=== PATIENT | male | born 1980 | race Caucasian/White ===

== ENCOUNTER 2016-11-06 10:09 | Emergency (ER) | payer BC ==
[~2016-11-06] VITALS: Ht 185.4 cm; Wt 107.9 kg
[~2016-11-06 10:09] MED LIST: IBUP-1428 PO; OXYC-57 PO
[2016-11-06 10:16] VITALS: TEMP 36.6; Ht 185.4 cm; Wt 107.9 kg
[2016-11-06 10:39] LABS: BASO % 0.1 %; BASO ABS # 0.01 K/uL (0-0.2); COMPLETE YES; EOS % 3.4 %; HEMATOCRIT 41.6 % (42-52); IG% 0.1 %; LYMPH % 45.4 %; LYMPH ABS # 3.23 K/uL (1.2-3.4); MEAN CELL VOLUME 84.7 fL (80-100); MEAN CORPUSCULAR HEMOGLOBIN 31.6 pg (25-34); MEAN CORPUSCULAR HGB CONC 37.3 g/dl (32-36); MONO % 5.8 %; NEUT % 45.2 %; PLATELET COUNT 264 K/uL (130-400); RED BLOOD COUNT 4.91 M/uL (4.7-6.1); WHITE BLOOD COUNT 7.12 K/uL (4.8-10.8)
--- NOTE | 2016-11-06 10:42 | DIAGNOSTIC IMAGING REPORT ---
CHEST ONE VIEW PORTABLE CLINICAL HISTORY: Atypical chest pain COMPARISON STUDY: No previous studies for comparison. FINDINGS: The cardiac and mediastinal contours are normal. There is no evidence of focal pulmonary consolidation. There is no evidence of failure. No pleural effusions are visualized.[ IMPRESSION: No active disease in the chest. Electronically signed by: Quintin Miles M.D. 11/06/2016 10:40 AM Dictated Date/Time: 11/06/2016 10:40 AM
[2016-11-06 11:06] LABS: BUN/CREATININE RATIO 16.3 (10-20); CREATININE 1.1 mg/dl (0.60-1.40)
[2016-11-06 11:11] LABS: CKMB/CK RATIO 0.7 (0-3.0)
[2016-11-06 11:17] VITALS: O2SAT 96
[2016-11-06] MEDS ORDERED: PERFLUTREN LIPID MICROSPHERE (DEFINITY) IV ONE (14:13)
[2016-11-06 14:25] VITALS: BP 135/74; PULSE 79; O2SAT 97
--- NOTE | 2016-11-06 15:38 | EXERCISE STRESS ECHO ---
*NOTICE TO RECEIVING [employer] This information is strictly Confidential and protected under [place] law. [place] law prohibits you from making any further disclosure of this information unless further disclosure is expressly permitted by the written consent of the person to whom it pertains or is authorized by law. A general authorization for the release of medical or other information is not sufficient for this purpose. Hospital accepts no responsibility if the information is made available to any other person, INCLUDING THE PATIENT. Interpretation Summary * Name: LUIS CEVALLOS Study Date: 11/06/2016 01:21 PM BP: 166/67 mmHg * Patient Location: [facility] HR: 61 * : 1980 (M/d/yyyy) Gender: Male Height: 73 in * Age: 36 yrs Ethnicity: CA Weight: 237 lb * Ordering Physician: Hong Hui * Referring Physician: Self, Referred * Performed By: Giselle Mcfarlane RCS * * Reason For Study: CHEST PAIN / NUMBNESS IN ARM * BSA: 2.3 m2 * -- Conclusions -- * Normal stress echocardiogram at 12.1 METS and a peak heart rate of 97% predicted maximum. * No exercise induced chest pain. * No EKG changes. * Baseline echocardiogram notes normal left ventricular systolic function. Procedure Details * ECHOEX, CPT #89895 * One vial of Definity ultrasound contrast was diluted in normal saline to a total volume of 10 ml. A total of '4' ml of solution was administered during imaging. * A contrast injection of Definity was performed to improve assessment of LV function. * Contrast was injected into an intravenous site in the right arm. * Lot # [id number] of Definity utilized for procedure. * Expiration date OCT 15. * The attending nurse who injected the contrast agent was GIULIA CORRAL CPL, RN. Left Ventricle * The left ventricle is normal in size. * There is normal left ventricular wall thickness. * Left ventricular systolic function is normal. * Resting wall motion: Normal. Stress wall motion: Appropriate increase in Left ventricular systolic function and decrease in cavity size. No stress induced segmental wall motion abnormalities. Stress Parameters * Normal baseline electrocardiogram. * Stress ECG: No ST changes. No arrhythmias. * The stress portion of this study was personally supervised by the undersigned interpreting physician. * Rest heart rate was '61' BPM. * Rest blood pressure was '166/67' * Maximum heart rate achieved was 179 bpm. * Maximum heart rate was 97 % of maximum age-predicted heart rate. * Maximum blood pressure was '173/73' * Total exercise time was '08:31' * Maximum exercise MET level achieved was '12.10' METS * Maximum treadmill speed was '4.20' miles per hour. * Maximum treadmill elevation was '16.00'% grade.
--- NOTE | 2016-11-06 16:33 | EMERGENCY ROOM VISIT NOTE ---
History Report prepared by Morena: Braden Young Under the Supervision of: Dr. Hong Hui M.D. First contact with patient: 10:26 Chief Complaint: CARDIAC ASSESSMENT Stated Complaint: CHEST PAIN, NUMBING IN ARM Nursing Triage Summary: Pt reports last week he was running and developed midsternal CP. He slowed the treadmill down and sx resolved. Yesterday morning pt was driving to work, smoking an E-cigarette and got lightheaded and chest tightness This morning pt wsa driving to work, smoke an E-cigarette and drinking coffee when he got lightheaded, chest tightness, and numbness in left arm History of Present Illness The patient is a 36 year old male who presents to the Emergency Room with complaints of intermittent left sided chest pain starting about a week ago. While running at the gym, he had the onset of his chest pain last week. It resolved a few minutes after resting. He had a few more episodes of the pain with exertion. Yesterday morning, the patient was driving to work and smoking an e-cigarette when he had the onset of his pain. It resolved with rest. This morning, he was drinking coffee and driving to work when he had the onset of his pain again. He also started having pain radiation to the left arm which is new. He states that each episode of pain is worse than prior episodes and it is increasing in frequency. He describes it to be a squeezing pain in his chest. His grandfather had triple bypass surgery. The patient does not have any cardiac history. Pt denies LOC, headache, fevers, chills, diaphoresis, visual changes, neck pain, tearing pain radiating to the back, personal history or family history of aneurysm or pulmonary embolism, breathing difficulties, leg swelling, coagulation abnormalities, prolonged travel, recent surgery or immobilization, nausea, vomiting, abdominal pain, melena, hematochezia, urinary symptoms, numbness, weakness, lymphadenopathy, rash, or other complaints. Source of History: patient Onset: about a week ago Position: chest (left) Quality: other (squeezing pain) Timing: intermittent Modifying Factors (Worsening): exertion Modifying Factors (Relieving): rest Review of Systems See HPI for pertinent positives and negatives. A total of ten systems were reviewed and were otherwise negative. 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 Family History Cancer Heart disease Hypertension Social History Smoking Status: Current Every Day Smoker Marital Status: single Occupation Status: employed Current/Historical Medications No Active Prescriptions or Reported Meds Allergies Coded Allergies: No Known Allergies (Unverified , 11/06/16) Physical Exam Vital Signs Date Time Temp Pulse Resp B/P Pulse Ox O2 Delivery O2 Flow Rate FiO2 11/06/16 14:25 79 20 135/74 97 Room Air 11/06/16 12:14 60 18 131/89 97 Room Air 11/06/16 11:17 96 Room Air 11/06/16 10:26 61 11/06/16 10:16 97 Room Air 11/06/16 10:16 36.6 62 16 151/106 97 Room Air Physical Exam GENERAL: Awake, alert, well-appearing, in no distress HENT: Normocephalic, atraumatic. Oropharynx unremarkable. EYES: Normal conjunctiva. Sclera non-icteric. NECK: Supple. No nuchal rigidity. FROM. No JVD. RESPIRATORY: Clear to auscultation. CARDIAC: Regular rate, normal rhythm. Extremities warm and well perfused. Pulses equal. ABDOMEN: Soft, non-distended. No tenderness to palpation. No rebound or guarding. No masses. RECTAL: Deferred. MUSCULOSKELETAL: Chest examination reveals no tenderness. The back is symmetrical on inspection without obvious abnormality. There is no CVA tenderness to palpation. No joint edema. LOWER EXTREMITIES: Calves are equal size bilaterally and non-tender. No edema. No discoloration. NEURO: Normal sensorium. No sensory or motor deficits noted. SKIN: No rash or jaundice noted. Medical Decision & Procedures ER Provider Diagnostic Interpretation: X ray results as stated below per my interpretation and radiologist interpretation. CHEST ONE VIEW PORTABLE CLINICAL HISTORY: Atypical chest pain COMPARISON STUDY: No previous studies for comparison. FINDINGS: The cardiac and mediastinal contours are normal. There is no evidence of focal pulmonary consolidation. There is no evidence of failure. No pleural effusions are visualized.[ IMPRESSION: No active disease in the chest. Electronically signed by: Quintin Miles M.D. 11/06/2016 10:40 AM Dictated Date/Time: 11/06/2016 10:40 AM Laboratory Results 11/06/16 10:20 Red Blood Count 4.91, Mean Corpuscular Volume 84.7, Mean Corpuscular Hemoglobin 31.6, Mean Corpuscular Hemoglobin Concent 37.3, Mean Platelet Volume 9.0, Neutrophils (%) (Auto) 45.2, Lymphocytes (%) (Auto) 45.4, Monocytes (%) (Auto) 5.8, Eosinophils (%) (Auto) 3.4, Basophils (%) (Auto) 0.1, Neutrophils # (Auto) 3.22, Lymphocytes # (Auto) 3.23, Monocytes # (Auto) 0.41, Eosinophils # (Auto) 0.24, Basophils # (Auto) 0.01 11/06/16 10:20 Test 11/06/16 10:20 11/06/16 10:36 11/06/16 12:35 White Blood Count 7.12 K/uL (4.8-10.8) Red Blood Count 4.91 M/uL (4.7-6.1) Hemoglobin 15.5 g/dL (14.0-18.0) Hematocrit 41.6 % (42-52) Mean Corpuscular Volume 84.7 fL (80-100) Mean Corpuscular Hemoglobin 31.6 pg (25-34) Mean Corpuscular Hemoglobin Concent 37.3 g/dl (32-36) Platelet Count 264 K/uL (130-400) Mean Platelet Volume 9.0 fL (7.4-10.4) Neutrophils (%) (Auto) 45.2 % Lymphocytes (%) (Auto) 45.4 % Monocytes (%) (Auto) 5.8 % Eosinophils (%) (Auto) 3.4 % Basophils (%) (Auto) 0.1 % Neutrophils # (Auto) 3.22 K/uL (1.4-6.5) Lymphocytes # (Auto) 3.23 K/uL (1.2-3.4) Monocytes # (Auto) 0.41 K/uL (0.11-0.59) Eosinophils # (Auto) 0.24 K/uL (0-0.5) Basophils # (Auto) 0.01 K/uL (0-0.2) RDW Standard Deviation 38.4 fL (36.4-46.3) RDW Coefficient of Variation 12.4 % (11.5-14.5) Immature Granulocyte % (Auto) 0.1 % Immature Granulocyte # (Auto) 0.01 K/uL (0.00-0.02) Anion Gap 8.0 mmol/L (3-11) Est Creatinine Clear Calc Drug Dose 119.6 ml/min Estimated GFR () 99.6 Estimated GFR (Non- 85.9 BUN/Creatinine Ratio 16.3 (10-20) Calcium Level 9.0 mg/dl (8.5-10.1) Total Bilirubin 0.7 mg/dl (0.2-1) Direct Bilirubin 0.2 mg/dl (0-0.2) Aspartate Amino Transf (AST/SGOT) 25 U/L (15-37) Alanine Aminotransferase (ALT/SGPT) 50 U/L (12-78) Alkaline Phosphatase 86 U/L (45-117) Total Creatine Kinase 562 U/L (39-308) Creatine Kinase MB 4.2 ng/ml (0.5-3.6) Creatine Kinase MB Ratio 0.7 (0-3.0) Total Protein 7.9 gm/dl (6.4-8.2) Albumin 4.4 gm/dl (3.4-5.0) Lipase 211 U/L (73-393) Bedside D-Dimer 241 ng/mlFEU (0-450) Bedside Troponin I 0.000 ng/ml (0-0.045) Laboratory results reviewed by me Medications Administered Medications (Trade) Dose Ordered Sig/Anatoliy Route Start Time Stop Time Status Last Admin Dose Admin Perflutren Lipid Microsphere (Definity) 2 ml ONE ONCE IV 11/06/16 14:13 11/06/16 14:14 DC 11/06/16 14:13 2 ML ECG Indication: chest pain Rate (beats per minute): 64 Rhythm: normal sinus Findings: no acute ischemic change, no ectopy ED Course 1026: The patient was evaluated in room A03. A complete history and physical exam was performed. 1254: I discussed the patient's case with Dr. Reyez, binder chainstitch with [facility]. The patient will have the stress test within about an hour. 1257: I updated the patient. He is resting comfortably. 1310: The patient is currently doing a stress test. 1413: Definity 2 ml IV 1422: Dr. Reyez reported that the patient's stress test was normal. 1430: I reevaluated the patient. Discussed results and discharge instructions: He verbalized understanding and agreement. The patient is ready for discharge. Medical Decision Triage Nursing notes reviewed. The patient's presentation and history were concerning for chest pain. Etiologies such as cardiac ischemia, aortic dissection, pulmonary embolism, pneumonia, pneumothorax, musculoskeletal, infections, gastrointestinal, as well as others were entertained. The patient was evaluated. Clinically he was doing well. His ECG was nonischemic. Chest x-ray was performed and was normal. The patient had an unremarkable CBC, chemistry panel, d-dimer and troponin. CK was slightly elevated. The patient had a troponin repeated and this was 0 as well. Given his exertional symptoms it was felt that he should undergo further workup and I did consult with cardiology. The patient was seen in the cardiopulmonary suite and had stress testing performed. He passed this without difficulty. Given this fact coupled with his negative enzymes the patient was felt to be low risk for heart disease and can follow-up as an outpatient. Risks and benefits discussed. Given the total CK elevation of this may be muscular in nature. The patient felt very comfortable with this plan. If he worsens in any way he will be back to the Emergency Room for reevaluation. By the evaluation outlined above other emergent etiologies such as those listed in the differential, as well as others, were deemed relatively unlikely. The patient and family were informed about the findings as listed above. All questions were answered and they were pleased with the treatment. Return instructions were outlined and the patient was discharged in stable condition. The patient was referred to his PCP for follow-up for a recheck of the current condition. The chart was completed utilizing [employer] Speech voice recognition software. Grammatical errors, random word insertions, pronoun errors, and incomplete sentences are an occasional consequence of this system due to software limitations, ambient noise, and hardware issues. Any formal questions or concerns about the content, text, or information contained within the body of this dictation should be directly addressed to the physician for clarification. Consults Time Called: 1252 Consulting Physician: Dr. Reyez, binder chainstitch with [facility] Returned Call: 1252 I discussed the patient's case with Dr. Reyez, binder chainstitch with [facility]. The patient will have the stress test within about an hour. Impression Primary Impression: Left sided chest pain Scribe Attestation The scribe's documentation has been prepared under my direction and personally reviewed by me in its entirety. I confirm that the note above accurately reflects all work, treatment, procedures, and medical decision making performed by me. Departure Information Dispostion Home / Self-Care Prescriptions No Active Prescriptions or Reported Meds Referrals No Doctor, Assigned (PCP) Forms IMPORTANT VISIT INFORMATION Patient Instructions My [facility] Additional Instructions CHEST PAIN INSTRUCTIONS: Ibuprofen(Motrin, Advil) may be used for fever or pain. Use 600mg every six hours as needed. Take with food. Avoid using more than 2400mg in a 24 hour period. Do not use 2400mg per day for more than three consecutive days without physician direction. Prolonged inappropriate use can lead to stomach upset or ulcers. (AND/OR) Acetaminophen(Tylenol) may be used for fever or pain. Use 1000mg every six hours as needed. Avoid using more than 4000mg in a 24 hour period. Rest and drink plenty of fluids as tolerated. Continue current medications. Avoid strenuous activities and anything that worsens your pain. Resume normal activities once your symptoms resolve. Return to the ER immediately for worsening or persistent chest pain, abdominal pain, vomiting, fevers, chest pains, difficulty breathing, worsening of your condition, or as needed. Follow up with your primary physician in 2-3 days for a recheck of your current condition.
== END 2016-11-06 14:45 | disposition home or self-care (01) ==
LOC: C.EDB 10:11 → C.EDA 14:45
DX: R07.9 Chest pain, unspecified (principal); F17.200 Nicotine dependence, unspecified, uncomplicated; Z82.49 Family history of ischemic heart disease and other diseases of the circulatory system; Z80.9 Family history of malignant neoplasm, unspecified